=== PATIENT | female | born 1995 | race Caucasian/White ===

== ENCOUNTER 2016-10-24 16:15 | Inpatient (IN) | payer OTHER, SELFPAY ==
[~2016-10-24] VITALS: Ht 144.8 cm; Wt 64.0 kg
[2016-10-24] VITALS (17 sets, daily range): BP systolic 96–127; BP diastolic 56–71
[2016-10-24] MEDS ORDERED: ZANT1TAB PO (16:27)
[2016-10-24] MEDS ORDERED: miSOPROStol 50 MCG 1/2 TAB (S0191) PO ONE (17:45)
[2016-10-24 18:07] LABS: MEAN CORPUSCULAR HGB CONC 32.6 g/dl (32.0-36.5); MEAN CORPUSCULAR VOLUME 92.1 fl (80.0-96.0); RED CELL DISTRIBUTION WIDTH 18.5 % (11.5-14.5); WHITE BLOOD COUNT 9.3 K/mm3 (4.0-10.0)
[2016-10-24] MEDS ORDERED: FENTANYL 2MCG/ML ROPIVACAINE 0.2% IN 0.9% NACL 200ML IVBAG As Ordered ONE (22:01)
[2016-10-24] MEDS ORDERED: OXYTOCIN DRIP 30 UNITS in APPROPRIATE DILUENT 1 EA IV SCH (22:15)
[2016-10-25] VITALS (73 sets, daily range): BP systolic 92–148; BP diastolic 52–94
[2016-10-25] MEDS: LR 1,000 ML IV SCH ×2 (09:36→15:54)
[2016-10-25] MEDS ORDERED: FENTANYL 2MCG/ML ROPIVACAINE 0.2% IN 0.9% NACL 200ML IVBAG As Ordered ONE (12:33)
[2016-10-25] MEDS ORDERED: LACTATED RINGER'S 1000 ML IV PRN (12:45)
[2016-10-25] MEDS ORDERED: ONDANSETRON 4MG/2ML VIAL (J2405) IV PRN ×3 (12:45→19:45)
[2016-10-25] MEDS ORDERED: diphenhydrAMINE INJ 50MG/ML VIAL (J1200) IV PRN (12:45)
[2016-10-25] MEDS ORDERED: REFRIGERATOR IV KEYS XX PRN (12:45)
[2016-10-25] MEDS ORDERED: EPIDURAL COMMENT XX SCH (12:45)
[2016-10-25] MEDS ORDERED: EPIDURAL/PCA KEYS XX PRN (12:45)
[2016-10-25] MEDS ORDERED: ePHEDrine SULFATE 25 MG/5 ML(5MG/ML) SYRINGE IV PRN (12:45)
[2016-10-25] MEDS ORDERED: FENTANYL/ROPIVACAINE/NACL BAG 200 ML EPIDURAL SCH (12:45)
[2016-10-25] MEDS ORDERED: NALOXONE INJ 0.4 MG/1 ML VIAL (J2310) IV PRN ×3 (12:45→18:30)
[2016-10-25] MEDS ORDERED: fentaNYL 100 MCG/2 ML INJECTION (J3010) As Ordered ONE ×2 (13:48→18:30)
[2016-10-25] MEDS ORDERED: BICITRA 30ML SOLN UDC PO ONE (17:00)
[2016-10-25] MEDS ORDERED: ACETAMINOPHEN 650 MG SUPP PR ONE (17:15)
[2016-10-25] MEDS ORDERED: BUPIVACAINE HCL 0.25% 30 ML VIAL SC ONE (17:15)
[2016-10-25 17:35] LABS: MEAN CORPUSCULAR HEMOGLOBIN 30.5 pg (27.0-33.0); MEAN CORPUSCULAR HGB CONC 33.1 g/dl (32.0-36.5); MEAN CORPUSCULAR VOLUME 92.1 fl (80.0-96.0); RED CELL DISTRIBUTION WIDTH 18.9 % (11.5-14.5); WHITE BLOOD COUNT 12.6 K/mm3 (4.0-10.0)
[2016-10-25] MEDS ORDERED: LIDOCAINE PRES-FREE 2% 10ML AMP As Ordered ONE ×2 (17:56→18:15)
[2016-10-25] MEDS ORDERED: OXYTOCIN INJ 10 UNITS/ML VIAL (J2590) As Ordered ONE ×2 (17:56→18:28)
[2016-10-25] MEDS ORDERED: MORPHINE PRES-FREE INJ 10 MG/10 ML VIAL (J2274) As Ordered ONE (17:56)
[2016-10-25] MEDS ORDERED: ONDANSETRON 4MG/2ML VIAL (J2405) As Ordered ONE (17:57)
[2016-10-25] MEDS ORDERED: KETOROLAC 60 MG/2 ML VIAL (J1885) As Ordered ONE (17:57)
[2016-10-25] MEDS ORDERED: NALBUPHINE HCL 10 MG/ML AMP (J2300) IV PRN ×2 (18:30→19:45)
[2016-10-25] MEDS ORDERED: METOCLOPRAMIDE INJ 10MG/2ML VIAL (J2765) IV PRN ×2 (18:30→19:45)
[2016-10-25 18:46] LABS: CORD GAS ABE A -6.4; CORD GAS HCO3 A 20.7 MEQ/L; CORD GAS O2 SAT A 48.6 %; CORD GAS PCO2 A 46.8 mmHg; CORD GAS PH A 7.264 UNITS; CORD GAS PO2 A 21.9 mmHg; CORD GAS SBC A 18.2 MEQ/L; CORD GAS TCO2 A 22.2 MEQ/L
[2016-10-25 18:47] LABS: CORD GAS ABE V -6.7; CORD GAS HCO3 V 20.1 MEQ/L; CORD GAS O2 SAT V 36.8 %; CORD GAS PCO2 V 44.5 mmHg; CORD GAS PH V 7.272 UNITS; CORD GAS PO2 V 18.3 mmHg; CORD GAS SBC V 17.7 MEQ/L; CORD GAS TCO2 V 21.4 MEQ/L
[2016-10-25] MEDS ORDERED: RHOGAM 300 MCG (1500 IU) INJ (J2790) IM SCH (19:30)
[2016-10-25] MEDS ORDERED: METHYLERGONOVINE MALEATE 0.2 MG TAB PO PRN (19:30)
[2016-10-25] MEDS ORDERED: MEASLES,MUMPS,RUBELLA VACCINE INJ (MMR-II) (90707) SC SCH (19:30)
[2016-10-25] MEDS ORDERED: MOM 30ML SUSPENSION UDC PO PRN (19:30)
[2016-10-25] MEDS ORDERED: DOCUSATE SODIUM 100 MG CAP PO PRN (19:30)
[2016-10-25] MEDS ORDERED: ANUSOL HC CREAM 30GM TOP PRN (19:30)
[2016-10-25] MEDS ORDERED: PERCOCET 5MG/325MG TAB PO PRN ×3 (19:30→19:45)
[2016-10-25] MEDS ORDERED: HYDROmorphone HCL 1 MG/ML SYRINGE (J1170) IV PRN (19:45)
[2016-10-25] MEDS ORDERED: MEPERIDINE INJ 25 MG/ML VIAL (J2175) IV PRN (19:45)
[2016-10-25] MEDS ORDERED: LR 1,000 ML IV SCH (19:45)
[2016-10-25] MEDS ORDERED: fentaNYL 100 MCG/2 ML INJECTION (J3010) IV PRN (19:45)
[2016-10-26 01:54] VITALS: BP 111/63
[2016-10-26] MEDS: IBUPROFEN 800 MG TAB PO SCH ×3 (02:29→17:33)
[2016-10-26 06:32] VITALS: BP 107/54
--- NOTE | 2016-10-26 06:54 | IPN ---
DATE:10/26/2016 SUBJECTIVE: This lady is a 21-year-old 1 who had a primary section for cephalopelvic disproportion (CPD) persistent occipitoposterior position (POP) postdates meconium-stained liqua, delivered a live female infant 7 pounds 15 ounces 3588 grams scores of 9 and 9 at one and five minutes respectively. Arterial pH 7.26, base excess -6.4, venous pH 7.27, base excess -6.7. Her admitting hemoglobin was 9.8, hematocrit 30.2, platelets 267. On day one: 9.8, hematocrit 29.6, platelets 242. She is mobilizing, doing well, passing gas. Bowel sounds are present. She has voided, had a bowel movement. We discussed phlebitis, cystitis, mastitis, metritis and cellulitis, diet, exercise, pain management, perineal, breast and wound care. Medications will be dispensed at discharge. She requested oral contraceptives and counseled regarding starting them at the six-week of postoperative time. The rest of the examination is unremarkable. Her blood pressure is 111/63, respirations are 18, pulse 98, temperature 99.0. The patient is planning on discharge for tomorrow morning with medications. Baby possibly discharged tomorrow.
[2016-10-26 07:20] LABS: MEAN CORPUSCULAR HEMOGLOBIN 30.6 pg (27.0-33.0); MEAN CORPUSCULAR HGB CONC 33.1 g/dl (32.0-36.5); MEAN CORPUSCULAR VOLUME 92.7 fl (80.0-96.0); RED CELL DISTRIBUTION WIDTH 19.3 % (11.5-14.5); WHITE BLOOD COUNT 8.5 K/mm3 (4.0-10.0)
--- NOTE | 2016-10-26 07:34 | RO ---
DATE OF PROCEDURE: 10/25/2016 PREOPERATIVE DIAGNOSIS: Followup pelvic disproportion, persistent occiput posterior, meconium stained Liqui, post age gestation. POSTOPERATIVE DIAGNOSIS: Followup pelvic disproportion, persistent occiput posterior, meconium stained Liqui, post age gestation. OPERATION PROPOSED: Primary section. OPERATION PERFORMED: Primary section. SURGEON: Dr. Alexx Corrales. ESL INSTRUCTIONAL ASSISTANT: Katie. ANESTHESIA: Epidural plus local anesthetic for intraperitoneal procedures. ESTIMATED BLOOD LOSS: 400 mL. Under adequate anesthesia, prepped, draped in the supine position, Rondon catheter in the bladder draining clear urine. Acetaminophen suppository 1300 mg per rectum, sequentials on board and antibiotics given preoperatively. Time-out was performed. A Pfannenstiel incision was made two fingerbreadths above symphysis pubis passing through abdominal layers securing hemostasis. Opening the peritoneal cavity, bladder reflected well down anteriorly. Low transverse incision was made into the uterus, meconium stained Liqui was noted. Baby was in the POP position, difficulty in extracting the head and it was deep in the pelvis and fixed in there, however with some difficulty, we extricated the baby with fundal pressure, delivered a live female infant, of 9 and 9 at one and five minutes respectively. 3588 grams, [address] Ariza in attendance at delivery. The baby was noted to be stained with meconium as was the placenta which manually removed. Three-vessel cord, membranes and tissues intact. Arterial and venous pH was performed. Arterial pH is 7.26, base excess -6.4, venous pH of 7.27, base excess -6.7. The uterus contracted well down on Pitocin. The lower segment was oversewn in usual fashion in two layers. Reperitonealization was performed. With instrument and pad count correct, both ovaries and tubes appeared to be normal. The abdomen was then closed. Running stitch for the perineum, same for the fascia, interrupted for subcu. Dexon to the skin with Marcaine 0.25% 10 mL. Surgical spray and Telfa and the patient was sent to recovery in good condition.
[2016-10-26] MEDS: PRENATAL VITAMIN TAB PO SCH (08:57)
[2016-10-26 10:00] VITALS: BP 102/54
[2016-10-26 14:00] VITALS: BP 92/50
[2016-10-26 18:00] VITALS: BP_SYST 109; BP_SYST 123; BP_DIAS 67; BP_DIAS 69
[2016-10-26 22:09] VITALS: BP 103/53
[2016-10-27] MEDS: IBUPROFEN 800 MG TAB PO SCH ×2 (02:00→09:37)
[2016-10-27 06:23] VITALS: BP 122/66
[2016-10-27 07:10] LABS: MEAN CORPUSCULAR HEMOGLOBIN 28.1 pg (27.0-33.0); MEAN CORPUSCULAR HGB CONC 30.3 g/dl (32.0-36.5); RED CELL DISTRIBUTION WIDTH 19.2 % (11.5-14.5); WHITE BLOOD COUNT 12.9 K/mm3 (4.0-10.0)
[2016-10-27] MEDS ORDERED: COLA100C3 PO (08:28)
[2016-10-27] MEDS ORDERED: IBUP-1114 PO (08:28)
[2016-10-27] MEDS ORDERED: PRENTAB9 PO (08:28)
[2016-10-27] MEDS: PRENATAL VITAMIN TAB PO SCH (08:31)
--- NOTE | 2016-10-27 08:42 | DSES ---
DATE OF ADMISSION: 10/24/2016 DATE OF DISCHARGE: This lady is a 21 old 1 now para 1 who was admitted for induction of labor at 41 and 1 weeks of gestation. Had a primary section because of CPD, POP, meconium Liqui. Delivered a live female 7 pounds 15 ounces, 3588 grams. of 9 and 9 at one and five minutes respectively. Arterial pH 7.26, base excess -6.4, venous pH 7.27, base excess -6.7. Her admitting hemoglobin was low at 9.8, hematocrit 30.2 and platelets were 267. Her discharge hemoglobin 6.8, hematocrit 20.6 and platelets 168 and she is asymptomatic. On discharge, we discussed phlebitis, cystitis, mastitis, endometritis and cellulitis, diet, exercise, pain management, perineal, breast and wound care. We discussed iron rich foods including grapes, raisins, broccoli, liver and multivites with iron. On discharge, her blood pressure is 122/66, respirations are 18, pulse is 117 and temperature is 98.5. The rest of the examination is unremarkable. She is normocephalic, atraumatic. Neck: Full range of motion. Pupils equal and reactive to light. Distal pulses are symmetric. No evidence of DVT, PE or superficial phlebitis. Chest is clear bilaterally to bases. No wheezes or rhonchi. No CVA tenderness. Abdomen soft. Uterus 2 below. Lochia is moderate. Incision is clean and dry and there is four quadrant bowel sounds noted. No rashes, lesions or pruritus. No arthralgia. No complaints of cough, wheezes, shortness of breath or dyspnea on exertion. No chest pain. No bruising. No bleeding. She is neuro complete. No incontinency, urgency or frequency. No nausea, vomiting, diarrhea or constipation. She has no diabetic issues. No gyne, past medical or surgical history, is unremarkable. Family history is noncontributory. She does not smoke, drink abuse drugs. She is and there is no domestic violence. In summary, we have a post date gestation delivered by section. Has anemia but started out with a low hemoglobin/hematocrit. Was discharged with medications and description of iron rich foods. Has a followup in two weeks' time for incision check and 6 weeks for check.
== END 2016-10-27 10:25 | disposition home or self-care (01) | DRG 766 ==
LOC: M LDI 16:15 → M OBS 10-25 20:45
PROVIDERS: ADMIT Student in an Organized Health Care Education/Training Program; ATTEND Obstetrics & Gynecology
PROC: 3E0134Z Introduction of Serum, Toxoid and Vaccine into Subcutaneous Tissue, Percutaneous Approach (ICD-10-PCS; 2016-10-24)
PROC: 10D00Z1 Extraction of Products of Conception, Low, Open Approach (ICD-10-PCS; principal; 2016-10-25 18:20)
DX: O48.0 Post-term pregnancy (principal); O77.0 Labor and delivery complicated by meconium in amniotic fluid; Z3A.41 41 weeks gestation of pregnancy; O65.4 Obstructed labor due to fetopelvic disproportion, unspecified; O99.02 Anemia complicating childbirth; D64.9 Anemia, unspecified; Z37.0 Single live birth